=== PATIENT | male | born 1985 | race Two or more races ===

== ENCOUNTER 2017-02-01 10:45 | Emergency (ER) | payer MEDICAID ==
[~2017-02-01] VITALS: Ht 170.2 cm; Wt 72.6 kg
[2017-02-01 10:49] VITALS: BP 129/78
== END 2017-02-01 11:38 | disposition home or self-care (01) ==
LOC: ER 10:46
DX: S61.411A Laceration without foreign body of right hand, initial encounter (principal); W45.8XXA Other foreign body or object entering through skin, initial encounter; Y93.89 Activity, other specified; Y92.89 Other specified places as the place of occurrence of the external cause; Y99.8 Other external cause status
CPT/HCPCS: 90471; 90715; 99283; A4606; Z7610